=== PATIENT | male | born 1960 | race Caucasian/White ===

== ENCOUNTER 2023-09-20 12:10 | Outpatient (CLI) | payer OTHER, SELFPAY ==
--- NOTE | ~2023-09-20 | XR_ITS ---
EXAMINATION: XR hand RT min 3V DATE: 09/20/2023 12:36 INDICATION: Osteomyelitis with swelling and erythema at the distal right index finger TECHNIQUE: Posteroanterior, oblique and lateral views of the right hand were obtained. COMPARISON: None. FINDINGS: Prominent osteolysis with destruction and loss of the majority of the diaphyseal bone at the right se cond distal phalanx consistent with provided history of osteomyelitis. This results in separation of the bone at the base and distal aspects of the phalanx. No other acute fractures identified. Old heal ed fracture deformity tuft of the right first distal phalanx. There is persistent flexion at the righ t fifth proximal interphalangeal joint which is of indeterminate etiology. Diffuse osteopenia. Polyar ticular osteoarthritis, severe at the first carpometacarpal joint, moderate at the first interphalang eal and second distal interphalangeal joints and mild at the majority the remaining metacarpophalange al and interphalangeal joints. There is prominent soft tissue swelling about the distal phalanx but n o evident soft tissue gas or radiopaque foreign bodies. IMPRESSION: 1. Prominent osteolysis with destruction of the majority of the diaphyseal bone at the right second d istal phalanx consistent with osteomyelitis. Reviewed, dictated and finalized at location A. IMPRESSION: 1. Prominent osteolysis with destruction of the majority of the diaphyseal bone at the right second distal phalanx consistent with osteomyelitis.
== END 2023-09-20 12:11 | disposition home or self-care (01) ==
PROVIDERS: PCP Physician Assistant; Visit Provider Plastic Surgery
DX: M86.142 Other acute osteomyelitis, left hand (principal)
CPT/HCPCS: 73130

== ENCOUNTER 2023-09-26 01:40 | Day surgery (SDC) | payer OTHER, SELFPAY ==
[2023-09-23 11:09] VITALS: BMI 32.5
--- NOTE | 2023-09-23 11:20 | PC.NURSE ---
Report to the Outpatient Waiting Room, entrance under the green pavilion located off [facility], at time 1215 on date 09/26/23. Planned Procedure Time: 1415. Time changes happen often and if your time is changed the preop area will call you the afternoon before. - You and your visitor will be asked to self-screen and do not enter if you have any COVID symptoms. - A mask is optional within the hospital at this time. Patients may have clear liquids (water, carbonated beverages, clear teas, apple juice) until 3 hours prior to surgery with a maximum of 20 ounces. - No food from midnight until time of surgery Take the following medications with a SIP of water the morning of surgery: INHALERS, XANAX, TRAMADOL DO NOT STOP ANY OF YOUR OTHER PRESCRIPTION MEDICATIONS PRIOR TO SURGERY ?EXCEPT THE FOLLOWING Medications to discontinue per physician: N/A Date to take last dose: N/A Please no make-up, nail slovenian, hairspray, perfume, deodorant, or body powder the day of surgery. No jewelry (including any body piercings) or valuables the day of surgery, leave them at home. Please take a shower or bath the night before, or the morning of, surgery with an antibacterial soap. Wear comfortable, loose fitting clothing. - Jewelry must be removed prior to entering the operating room. Rings and piercings that are not removed may be cut off. - The hospital will not accept responsibility for valuables. - Please leave all valuables, including medications, at home the day of surgery. If you are going home after surgery, a licensed hog driver must drive you home. - NO public transportation without another adult if you receive anesthesia. - We recommend that an adult stay with you for 24 hours following discharge. - We also recommend that you do not drive, make important decision, drink alcoholic beverages, or take any drugs that were not prescribed by your health care provider for at least 24 hours after your discharge time. Follow any additional instructions given to you from your surgeon. If you or anyone in your household have experienced Covid symptoms in the past week, please notify your surgeon or the nurse liaison at the phone number below for possible testing. Telephone instructions given to SPOUSE - MAYTE and asked if any additional questions and then verbalized understanding. Patient advised to call surgeon office or pre surgery nurse liaison [phone] if any additional questions.
--- NOTE | 2023-09-26 07:24 | WPDHPUPDATE1 ---
History and Physical Update Update Date/Time: 09/26/23 07:24 History and Physical has been reviewed, including an updated exam of the patient. There are NO changes in the patient's condition. Risks, benefits, and alternatives have been discussed and questions answered. Patient agrees to proceed with procedure.
[2023-09-26 12:40] VITALS: BP 121/69; PULSE 73; RESP 18; TEMP 36.3; O2SAT 97
[2023-09-26 12:45] VITALS: BMI 31.1
[2023-09-26] MEDS: LACTATED RINGERS 1,000 ML 30 ML IV CONT (13:20)
--- NOTE | 2023-09-26 14:01 | P.PNAN_ITS ---
Anes - Initial Pre Proc Eval Procedure: Operation Date: 09/26/23 14:15 Proposed Procedures p Amputation of Distal Phalanx Right Index Finger - Yeyo Loja MD Date/Time: 09/26/23 14:01 Surgeon: Yeyo Loja MD Pre Op Diagnosis: osteomyelitis right distal phalanx Patient Data Age: 62 Gender: M Height: 1.75 m Weight: 99.8 kg Allergies Allergy/AdvReac Type Severity Reaction Status Date / Time No Known Allergies Allergy Verified 09/26/23 13:10 Home Medications Medication Instructions Recorded Confirmed Type albuterol sulfate 90 mcg/actuation 2 inh inhalation PRN PRN 09/23/23 09/23/23 History aerosol inhaler Bronchospasm alprazolam 0.5 mg tablet 0.5 mg PO TID 09/23/23 09/26/23 History fluticasone 250 mcg-salmeterol 50 1 inh inhalation DAILY 09/23/23 09/23/23 History mcg/dose blistr powdr for inhalation (Advair Diskus) latanoprost 0.005 % eye drops 1 drp EACH EYE HS 09/23/23 09/23/23 History omeprazole 20 mg capsule,delayed 20 mg PO DAILY 09/23/23 09/23/23 History release tramadol 50 mg tablet 50 mg PO TID 09/23/23 09/26/23 History Patient hx anesthesia problems: none Family hx anesthesia problems: none Results Review: All pre-operative results and documents have been reviewed as part of the pre- operative evaluation. [facility] Social History Social History Smoking packs per day: 1 Smoking cigarettes per day: 20.0 Years smoked: 50 Smoking pack-years: 50.00 Smoking status: Current every day smoker Tobacco type: cigarettes Alcohol intake: never Substance use: current Substance use type: marijuana Living arrangements: with family Spiritual care concerns: No Anes - Eval Final PreProcedure Day of Procedure 09/26/23 14:01 Patient weight: obese Heart: regular rate and rhythm Lungs: clear to auscultation Airway: Mallampati scale class III Neurological: alert and oriented Last oral intake: >/= 8 hours ASA classification: IV Emergent: no Anesthetic plan: proceed Anesthesia type and monitoring: general GIVS and standard monitoring Results Review: All pre-operative results and documents have been reviewed as part of the pre- operative evaluation. Informed Consent: The patient's anesthetic plan and its attendant risks and benefits were discussed with the patient/family/POA. Questions were solicited and answers provided to the satisfaction of the patient/family/POA.
[2023-09-26] MEDS: LIDO 1%/EPINEPHRINE 1:100,000 50 ML VIAL INFILTRATE (15:35)
[2023-09-26 15:52] VITALS: BP 111/59; PULSE 78; RESP 16; O2SAT 98
[2023-09-26 16:20] VITALS: BP 120/63; PULSE 67
--- NOTE | 2023-09-26 16:26 | W.PM.PROC2 ---
Procedure Note - Detailed Date of Procedure 09/26/23 Pre-op Diagnosis osteomyelitis right distal phalanx Post-op Diagnosis Same Procedure Performed Amputation distal phalanx right index finger Surgeon Yeyo Loja MD Anesthesia MAC Indications Chronic infection with osteomyelitis Description of Procedure The affected right index finger was marked with the patient's consent in the preop area. He was then taken to the operating room was placed supine on the operating table. He was given IV sedation. The right upper extremity was prepped and draped usual fashion. Time-out was held and confirmed. The site was marked for the and volar flap repair. The digit was anesthetized with 1% lidocaine with epinephrine. The blue tourniquet was placed to the base of the right index finger without compression to the distal phalanx. The volar flap design was incised on the finger. The extensor tendon was divided the neurovascular bundles were divided without additional treatment. The flexor tendon was divided and the amputation was done with a bone cutter at the distal metaphysis of the middle phalanx. The specimen was sent for gross to pathology. The site was copiously irrigated. The flap was tailored and closed with interrupted 4-0 nylon suture. Small soft bandage was applied. The patient was discharged from the operating room stable condition. He has been sent the prescription for amoxicillin clavulanic 875 1 p.o. b.i.d. for 2 weeks and a prescription for hydrocodone 5/325 7. Estimated Blood Loss 0 Drains No Packing No Pathology Yes Complications No immediate complications Condition Stable Disposition Same day
[2023-09-26 16:50] VITALS: BP 112/59; PULSE 71
== END 2023-09-26 17:12 | disposition home or self-care (01) ==
PROVIDERS: PCP Physician Assistant; Visit Provider Plastic Surgery
PROC: (CPT 26910; principal; 2023-09-26 14:15)
DX: C44.622 Squamous cell carcinoma of skin of right upper limb, including shoulder (principal); C41.9 Malignant neoplasm of bone and articular cartilage, unspecified; K21.9 Gastro-esophageal reflux disease without esophagitis; F12.90 Cannabis use, unspecified, uncomplicated; F17.210 Nicotine dependence, cigarettes, uncomplicated; Z79.51 Long term (current) use of inhaled steroids; Z79.891 Long term (current) use of opiate analgesic; Z85.118 Personal history of other malignant neoplasm of bronchus and lung; E66.9 Obesity, unspecified; Z68.31 Body mass index [BMI] 31.0-31.9, adult
CPT/HCPCS: 26951; 88305; A9270; J2405; J2704; J7120

== ENCOUNTER 2023-10-04 16:02 | Outpatient (CLI) | payer OTHER, SELFPAY ==
--- NOTE | ~2023-10-04 | XR_ITS ---
EXAMINATION: XR hand LT min 3V DATE: 10/04/2023 16:28 INDICATION: Cancer, left index finger distal phalanges TECHNIQUE: Posteroanterior, oblique and 2 lateral views of the left hand were obtained. COMPARISON: None. FINDINGS: Diffuse osteopenia. Bone alignment is normal. No fracture. Severe osteoarthritis with some subarticul ar cystlike changes at the first carpometacarpal joint. Moderate osteoarthritis at the radiocarpal an d first interphalangeal joints. Mild osteoarthritis of the distal radioulnar, triscaphe, first metaca rpophalangeal and remaining interphalangeal joints. No cortical erosions, periosteal reaction or susp icious lytic or blastic bone lesions.. IMPRESSION: 1. Polyarticular osteoarthritis at the left hand and wrist, severe at the first carpometacarpal joint . Reviewed, dictated and finalized at location A. LER TENDER IMPRESSION: 1. Polyarticular osteoarthritis at the left hand and wrist, severe at the first carpometacarpal joint.
== END 2023-10-04 16:03 | disposition home or self-care (01) ==
PROVIDERS: PCP Physician Assistant; Visit Provider Plastic Surgery
DX: C44.629 Squamous cell carcinoma of skin of left upper limb, including shoulder (principal); M15.9 Polyosteoarthritis, unspecified
CPT/HCPCS: 73130

== ENCOUNTER 2023-12-31 00:42 | Day surgery (SDC) | payer OTHER, SELFPAY ==
[2023-12-19 10:05] VITALS: BMI 23.6
--- NOTE | 2023-12-19 10:35 | PC.NURSE ---
Report to the Outpatient Waiting Room, entrance under the green pavilion located off [facility], at 0600 on 12-31-23. Planned Procedure Time: 0730. Time changes happen often and if your time is changed the preop area will call you the afternoon before. - You and your visitor will be asked to self-screen and do not enter if you have any COVID symptoms. - A mask is optional within the hospital at this time. Patients may have clear liquids (water, carbonated beverages, clear teas, apple juice) until 3 hours prior to surgery with a maximum of 20 ounces. 0430 - No food from midnight until time of surgery - Infants may have breast milk until 4 hours before surgery, formula 6 hours prior to surgery. - Children will be allowed to drink immediately following surgery. If applicable, please bring a bottle or sippy cup to assist with drinking. Juice, water, soda, and popsicles are readily available. For infants on formula, please bring formula the day of surgery. Pacifiers are allowed. Take the following medications with a SIP of water the morning of surgery: Alprazolam, Tramadol if needed; Bring Albuterol inhaler DOS DO NOT STOP ANY OF YOUR OTHER PRESCRIPTION MEDICATIONS PRIOR TO SURGERY ?EXCEPT THE FOLLOWING Medications to discontinue per physician: N/A Please no make-up, nail egyptian, hairspray, perfume, deodorant, or body powder the day of surgery. No jewelry (including any body piercings) or valuables the day of surgery, leave them at home. Please take a shower or bath the night before, or the morning of, surgery with an antibacterial soap. Wear comfortable, loose fitting clothing. Children are encouraged to wear pajamas. - Jewelry must be removed prior to entering the operating room. Rings and piercings that are not removed may be cut off. - The hospital will not accept responsibility for valuables. - Please leave all valuables, including medications, at home the day of surgery. If you are going home after surgery, a licensed school bus driver/mechanic must drive you home. - NO public transportation without another adult if you receive anesthesia. - We recommend that an adult stay with you for 24 hours following discharge. - We also recommend that you do not drive, make important decision, drink alcoholic beverages, or take any drugs that were not prescribed by your health care provider for at least 24 hours after your discharge time. For Pediatric surgeries, we recommend two adults accompany the child home. Follow any additional instructions given to you from your surgeon. If you or anyone in your household have experienced Covid symptoms in the past week, please notify your surgeon or the nurse liaison at the phone number below for possible testing. Telephone instructions given to Soledad Segovia and asked if any additional questions and then verbalized understanding. Patient advised to call surgeon office or pre surgery nurse liaison [phone] if any additional questions.
--- NOTE | 2023-12-30 13:34 | WPDANESEPPF ---
Anes - Initial Pre Proc Eval Procedure: Operation Date: 12/31/23 07:30 Proposed Procedures p Excision Squamous Cell Carcinoma Left Index and Middle Fingers with Frozen Section on Both Sites, Possible Ungiectomy, Possible Full Thickness Skin Graft or Application of Integra Dermal Matrix Xenograft - Yeyo Loja MD Date/Time: 12/30/23 13:34 Surgeon: Yeyo Loja MD Pre Op Diagnosis: sq cell CA left index and middle fingers Patient Data Age: 63 Gender: M Height: 1.75 m Weight: 72.57 kg Allergies Allergy/AdvReac Type Severity Reaction Status Date / Time No Known Allergies Allergy Verified 12/31/23 07:07 Home Medications Medication Instructions Recorded Confirmed Type albuterol sulfate 90 mcg/actuation 2 inh inhalation PRN PRN 09/23/23 12/31/23 History aerosol inhaler Bronchospasm alprazolam 0.5 mg tablet 0.5 mg PO TID 09/23/23 12/31/23 History fluticasone 250 mcg-salmeterol 50 1 inh inhalation DAILY 09/23/23 12/31/23 History mcg/dose blistr powdr for inhalation (Advair Diskus) latanoprost 0.005 % eye drops 1 drp EACH EYE HS 09/23/23 12/31/23 History omeprazole 20 mg capsule,delayed 10 mg PO DAILY 09/23/23 12/31/23 History release tramadol 50 mg tablet 50 mg PO TID 09/23/23 12/31/23 History Patient hx anesthesia problems: none Family hx anesthesia problems: none Results Review: All pre-operative results and documents have been reviewed as part of the pre-operative evaluation. [facility] Past Medical History Medical History (Updated 12/30/23 @ 13:39 by Rodriguez Valladares DO) Anxiety COPD (chronic obstructive pulmonary disease) GERD (gastroesophageal reflux disease) History of pulmonary embolism Hypotension Radiation injury of brain memory loss Seizure last 12/24/2012 Small cell lung cancer with mets to brain 2012 Social History Social History Smoking packs per day: 0.5 Smoking cigarettes per day: 10.0 Years smoked: 50 Smoking pack-years: 25.00 Smoking status: Current every day smoker Tobacco type: cigarettes Second hand tobacco smoke exposure: No Alcohol intake: never Substance use: current Substance use type: marijuana Living arrangements: with family Spiritual care concerns: No Anes - Eval Final PreProcedure Day of Procedure 12/30/23 13:34 Patient weight: normal Heart: regular rate and rhythm Lungs: clear to auscultation and normal air movement Airway: Mallampati scale class II Neurological: alert and oriented Last oral intake: >/= 8 hours ASA classification: III Emergent: no Anesthetic plan: proceed Anesthesia type and monitoring: general GIVS and standard monitoring Results Review: All pre-operative results and documents have been reviewed as part of the pre-operative evaluation. Informed Consent: The patient's anesthetic plan and its attendant risks and benefits were discussed with the patient/family/POA. Questions were solicited and answers provided to the satisfaction of the patient/family/POA.
[2023-12-31 06:39] VITALS: BP 122/59; PULSE 71; RESP 18; TEMP 36.7; O2SAT 98
[2023-12-31] MEDS: LACTATED RINGERS 1,000 ML 30 ML IV CONT ×2 (07:00→10:32)
--- NOTE | 2023-12-31 07:10 | WPDHPUPDATE1 ---
History and Physical Update Update Date/Time: 12/31/23 07:10 History and Physical has been reviewed, including an updated exam of the patient. There are NO changes in the patient's condition. Risks, benefits, and alternatives have been discussed and questions answered. Patient agrees to proceed with procedure.
[2023-12-31] MEDS: ceFAZolin SODIUM 1 GM VIAL 2 GM IV PUSH (07:47)
[2023-12-31] MEDS: LIDO 1%/EPINEPHRINE 1:100,000 20 ML VIAL 18 ML INFILTRATE (09:53)
[2023-12-31 10:32] VITALS: BP 114/51; PULSE 71; RESP 14; O2SAT 100
--- NOTE | 2023-12-31 10:57 | W.PM.PROC2 ---
Procedure Note - Detailed Date of Procedure 12/31/23 Pre-op Diagnosis sq cell CA left index and middle fingers Post-op Diagnosis Same Procedure Performed 2.5 cm excision of SCC left index finger with FS x2 and additional perm. sect x1 with FTSG 4.5 sq cm. 4.5 cm excision of SCC left middle finger with FS x2 and FTSG 7 sq cm. Surgeon Yeyo Loja MD Anesthesia MAC and Local Indications Bx proven SCC pre op. Description of Procedure In the holding area the patient's index and middle finger distal phalanges were marked for excision. He was taken to the operating room where he was placed supine on the operating table. He was given IV sedation. The left upper extremity was prepped and draped up to the elbow in anticipation of skin graft harvesting. The arm tourniquet was applied but not utilized. The 2 digits were infiltrated with 1% lidocaine with epinephrine about 3 milliliter each. The areas of concern were marked on the patient. On each finger 2 sites were marked these are closely approximated but not contiguous, allowing the use of frozen section from 2 sites on each finger. The green tourniquet was rolled on to the middle finger and the areas of concern were excised with a 15 blade down to the fascia. Along the lateral margin on each finger a strip of nail and nail bed was removed as well. On the middle finger the specimens were marked with a suture for 12:00 p.m.. These was sent to frozen section. The went down with those to help orient the pathologist. Report was that margins were free. The wound for that finger were closed with full-thickness skin graft taken from the volar forearm area. On the index finger a similar procedure was carried out. Again 2 specimens were sent from that distal phalanx, 1 from the radial nail fold including some nail and nail bed and the 2nd specimen was from the proximal nail fold region and dorsal skin. These were near by but not contiguous. The 12 o'clock position was marked on each with a suture. Those went for frozen section and pathologist reported again squamous cell carcinoma on each piece. The radial margin piece was free of tumor, but on the proximal nail fold piece the 12-1 o'clock area was positive focally. We sent a 2nd piece of tissue extending from 11-1 o'clock marked proximal nail fold with the new 12:00 o'clock margin tagged with suture . Only permanent sections were requested for that. The graft was taken from the volar forearm, defatted and tailored and inset with 5 0 nylon. Part of the graft along the proximal nail fold of the index finger was sutured at the proximal nail fold but not sutured distally and we would expect some necrosis and slough from the distal margin of that where it simply lies on nail plate under slight tension. The 2 sites were not under tourniquet control when we did the skin grafting. The dressing applied was Xeroform with gauze, Fernando and Coban. On the volar forearm donor site the wound margins were undermined, some intervening fat was excised and discarded. The wound margins were approximated with intradermal 3-0 Vicryl suture and skin closed with glue. Small bandage was applied there as well. The patient is discharge with instructions in wound care and follow-up. He has tramadol at home. There is also a prescription for hydrocodone 5/325 #5. The patient was given 2 g of Ancef preop. Estimated Blood Loss 30 Drains No Packing No Pathology Yes Complications No immediate complications Condition Stable Disposition Same day
[2023-12-31 11:00] VITALS: BP 97/64; PULSE 65; RESP 18
[2023-12-31 11:28] VITALS: BP 102/58; PULSE 58; RESP 18
[2023-12-31 12:00] VITALS: BP 99/54; PULSE 63; RESP 17
--- NOTE | 2023-12-31 13:25 | SUR.PHASEII ---
1300 - pt and family left a Luis and Discharge instructions here when they left. They were notified and stated would come back later. Items labeled and placed in safe here in outpatient area.
== END 2023-12-31 12:25 | disposition home or self-care (01) ==
PROVIDERS: PCP Physician Assistant; Visit Provider Plastic Surgery
PROC: (CPT 11623; principal; 2023-12-31 07:30)
DX: C44.629 Squamous cell carcinoma of skin of left upper limb, including shoulder (principal); J44.9 Chronic obstructive pulmonary disease, unspecified; K21.9 Gastro-esophageal reflux disease without esophagitis; F41.9 Anxiety disorder, unspecified; Z85.118 Personal history of other malignant neoplasm of bronchus and lung; Z85.841 Personal history of malignant neoplasm of brain; F17.210 Nicotine dependence, cigarettes, uncomplicated; Z79.51 Long term (current) use of inhaled steroids; F12.90 Cannabis use, unspecified, uncomplicated
CPT/HCPCS: 11623; 11624; 15240; 88305; 88331; A9270; J0690; J1596; J2250; J2371; J2405; J2704; J3010; J7120